=== PATIENT | male | born 1955 ===

== ENCOUNTER 2017-10-30 04:00 | Emergency (ER) | payer OTHER ==
[2017-10-30 04:30] VITALS: TEMP 97.1
[2017-10-30 04:58] LABS: BASOPHILS % (AUTO) 1 % (0-3); EOSINOPHILS % (AUTO) 3 % (0-9); HEMATOCRIT 41 % (39-53); HEMOGLOBIN 13.8 gm/dl (13.5-17.7); LYMPHOCYTES % (AUTO) 25.2 % (10-50); MEAN CORPUSCULAR HEMOGLOBIN 28.4 pg (27.0-32.0); MEAN CORPUSCULAR HGB CONC 33.9 gm/dl (32.0-36.0); MEAN CORPUSCULAR VOLUME 84 fL (80-100); MONOCYTES % (AUTO) 4.6 % (0-12); NEUTROPHILS % (AUTO) 66.6 % (37-80)
[2017-10-30 05:03] LABS: INR 1.02 (0.86-1.12)
[2017-10-30 05:07] LABS: ALBUMIN 3.3 gm/dl (3.4-5.0); ALCOHOL 0.216 gm/dl (0.000-0.08); BILIRUBIN,TOTAL 0.3 mg/dl (0.2-1.0); CARBON DIOXIDE 20.7 mEq/L (21-32); CREATININE 1.83 mg/dl (0.80-1.30); POTASSIUM 4.1 mMol/L (3.5-5.1); TOTAL PROTEIN 7.9 gm/dl (6.4-8.2)
[2017-10-30 05:41] LABS: AMPHETAMINES NEGATIVE (NEGATIVE); BARBITUATES NEGATIVE (NEGATIVE); BENZODIAZEPINES NEGATIVE (NEGATIVE); CANNABINOL(THC) NEGATIVE (NEGATIVE); COCAINE(COC) NEGATIVE (NEGATIVE); METHADONE NEGATIVE (NEGATIVE); METHAMPHETAMINES NEGATIVE (NEGATIVE); OPIATES(OPI) NEGATIVE (NEGATIVE); OXYCODONE(OXY) NEGATIVE (NEGATIVE); PROPOXYPHENE(PPX) NEGATIVE (NEGATIVE); TRICYCLIC ANTIDEPRESSANTS NEGATIVE (NEGATIVE)
[2017-10-30 06:01] VITALS: BP 105/72; PULSE 79; RESP 18; O2SAT 96
[2017-10-30 06:53] LABS: HEMOGLOBIN A1C 7.7 % (4.8-6.0)
== END 2017-10-30 05:42 | disposition short-term general hospital (02) ==
LOC: ED 04:00
DX: R55 Syncope and collapse (principal); R53.83 Other fatigue; H53.9 Unspecified visual disturbance; I10 Essential (primary) hypertension; R53.1 Weakness; R40.2362 Coma scale, best motor response, obeys commands, at arrival to emergency department; R40.2142 Coma scale, eyes open, spontaneous, at arrival to emergency department; R40.2252 Coma scale, best verbal response, oriented, at arrival to emergency department; R29.702 NIHSS score 2; Y90.7 Blood alcohol level of 200-239 mg/100 ml
CPT/HCPCS: 70450; 80053; 80305; 80307; 83036; 84484; 85025; 85610; 85730; 93005; 99291